=== PATIENT | male | born 1995 | race Caucasian/White ===

== ENCOUNTER 2017-06-08 21:12 | Emergency (ER) | payer OTHER ==
[~2017-06-08] VITALS: Ht 188 cm; Wt 95.7 kg
[2017-06-08] MEDS ORDERED: DOXY-278 PO (21:27)
[2017-06-09] MEDS ORDERED: CLEO300C2 PO
[2017-06-09] MEDS ORDERED: CLINDAMYCIN 150 MG CAP PO ONE
[2017-06-09 00:10] VITALS: BP 131/69
== END 2017-06-09 00:13 | disposition home or self-care (01) ==
LOC: M ED 21:12
DX: L03.114 Cellulitis of left upper limb (principal)